=== PATIENT | female | born 1965 | race Caucasian/White ===

== ENCOUNTER 2016-04-27 15:23 | Inpatient (IN) | payer MEDICAID ==
[2016-04-24 21:00] VITALS: BP 87/50
[~2016-04-27] VITALS: Ht 170.2 cm; Wt 62.9 kg
[2016-04-27 16:09] LABS: BASOPHILS 0.2 % (0.0-2.0); EOSINOPHILS 1.8 % (0-7); HEMATOCRIT 35.3 % (36.0-48.0); HEMOGLOBIN 12.2 g/dL (12-16); IMMATURE GRANULOCYTES 0.4 % (0-5); LYMPHOCYTES 19.5 % (15-50); MCH 30.4 pg (26.0-34.0); MCHC 34.6 g/dL (31.0-37.0); MEAN PLATELET VOLUME 9.8 fL (7.4-10.4); NEUTROPHILS 68.1 % (40-80); PLATELET COUNT 276 10x3/uL (130-400); RBC 4.01 10x6/uL (4.00-5.40); RDW 13.6 % (11.5-14.5)
[2016-04-27 16:39] LABS: ALBUMIN 3.2 g/dL (3.4-5.0); ANION GAP 16.8 mmol/L (8-16); BILIRUBIN - TOTAL 0.66 mg/dL (0.2-1.3); CALCIUM 11.1 mg/dL (8.5-10.1); CARBON DIOXIDE 21.4 mmol/L (21.0-32.0); CREATININE - SERUM 1.4 mg/dL (0.6-1.3); POTASSIUM - SERUM 4.2 mmol/L (3.5-5.1); PROTEIN - SERUM 7.4 g/dL (6.4-8.2)
[2016-04-27 18:43] LABS: APPEARANCE HAZY (CLEAR); BILIRUBIN NEGATIVE (NEGATIVE); COLOR YELLOW (YELLOW); GLUCOSE NEGATIVE (NEGATIVE); KETONE MODERATE mg/dL (NEGATIVE); LEUKOCYTE ESTERASE TRACE (NEGATIVE); NITRITE POSITIVE (NEGATIVE); PROTEIN NEGATIVE (NEGATIVE); UROBILINOGEN NORMAL (NORMAL)
[2016-04-27 18:50] LABS: BACTERIA MODERATE /hpf (NONE SEEN); EPITHELIAL CELLS 0-5 /hpf (0-5); GRANULAR CAST OCC /lpf (NONE SEEN); RED CELLS - URINE 0-5 /hpf (0-5)
[2016-04-27 19:11] LABS: UDS - AMPHET NEGATIVE QUAL (NEGATIVE); UDS - BARB NEGATIVE QUAL (NEGATIVE); UDS - BENZO NEGATIVE QUAL (NEGATIVE); UDS - COCAINE NEGATIVE QUAL (NEGATIVE); UDS - METH NEGATIVE QUAL (NEGATIVE); UDS - OPIATE NEGATIVE QUAL (NEGATIVE); UDS - PCP NEGATIVE QUAL (NEGATIVE); UDS - THC NEGATIVE QUAL (NEGATIVE)
--- NOTE | 2016-04-27 20:55 | NUR ---
PT ARRIVED VIA STRETCHER, HOOKED TO MONITORS, PT ALERT AND ORIENTED, ON RA WITH 96% O2 SAT. CLEAR IN ALL LOBES, S1S2, CM-NSR, PATENT RIGHT A/C PIV WITH NS INFUSING VIA PUMP, ABODMEN IS SOFT AND FLAT WITH ACTIVE BS, NO EDEMA NOTED, ALL PPP, CALL LIGHT IN REACH, WILL CON'T TO MONITOR
[2016-04-27 21:05] VITALS: BP 87/50; BMI 21.7
[2016-04-27 22:00] VITALS: BP 82/56
[2016-04-27 23:00] VITALS: BP 79/45
[2016-04-28] VITALS (26 sets, daily range): BP systolic 76–113; BP diastolic 45–69; Ht 170.2 cm; Wt 62.9 kg
--- NOTE | 2016-04-28 | NUR ---
REASSESSMENT COMPLETE, NO CHANGES NOTED, PT RESTING COMFORTABLY AT THIS TIME, DENIES ANY NEEDS, VSS, CALL LIGHT IN REACH
--- NOTE | 2016-04-28 03:25 | NUR ---
REASSESSMENT COMPLETE, NO CHANGES NOTED, PT RESTING AT THIS TIME, DENIES ANY NEEDS, WILL CON'T TO MONITOR
[2016-04-28 04:15] LABS: BASOPHILS 0.1 % (0.0-2.0); EOSINOPHILS 3.4 % (0-7); IMMATURE GRANULOCYTES 0.3 % (0-5); LYMPHOCYTES 16.6 % (15-50); MCH 29.6 pg (26.0-34.0); MCHC 33.3 g/dL (31.0-37.0); MCV 88.7 fL (80.0-100.0); MONOCYTES 8.2 % (2-11); NEUTROPHILS 71.4 % (40-80); PLATELET COUNT 259 10x3/uL (130-400); RDW 13.7 % (11.5-14.5)
[2016-04-28 04:18] LABS: HEMATOCRIT 28.2 % (36.0-48.0); HEMOGLOBIN 9.4 g/dL (12-16); RBC 3.18 10x6/uL (4.00-5.40); WBC 9.7 10x3/uL (4.8-10.8)
[2016-04-28 04:28] LABS: INR 1.41 (0.85-1.17); PROTIME 17.2 SECONDS (11.6-15.0)
[2016-04-28 04:29] LABS: APTT 65.7 SECONDS (22.8-39.4)
[2016-04-28 04:56] LABS: ALBUMIN 2.5 g/dL (3.4-5.0); ALKALINE PHOSPHATASE 138 U/L (46-116); AMYLASE - SERUM 15 U/L (25-115); BILIRUBIN - TOTAL 0.46 mg/dL (0.2-1.3); CALC OSMOLALITY 263 mosm/kg (275-300); CALCIUM 9.7 mg/dL (8.5-10.1); CARBON DIOXIDE 19.4 mmol/L (21.0-32.0); CHLORIDE - SERUM 98 mmol/L (98-107); CKMB 0.8 U/L (0.0-3.6); CREATININE - SERUM 1.1 mg/dL (0.6-1.3); GLUCOSE 74 mg/dL (74-106); LIPASE 122 U/L (73-393); POTASSIUM - SERUM 4.3 mmol/L (3.5-5.1); SODIUM 130 mmol/L (136-145); THYROID STIMULATING HORMONE 2.41 uIU/mL (0.36-3.74); UREA NITROGEN 23 mg/dL (7-18); eGFR NON AFRICAN AMERICAN 56 mL/min (90-120)
[2016-04-28 05:03] LABS: ALT (SGPT) 13 U/L (10-68); TROPONIN-I < 0.017 ng/mL (0.000-0.060)
--- NOTE | 2016-04-28 09:54 | NUR ---
Is the patient Alert and Oriented? Yes 0 * How many steps to enter\exit or inside your home? 3 0 * PCP DR. CURRAN 0 * Pharmacy [facility] [address] [facility] 0 * Preadmission Environment Home with Family 0 * ADLs Independent 0 * Equipment None 0 * List name and contact numbers for known caregivers / representatives who currently or will assist patient after discharge: SISTER: KAYLYN WALTON [phone] * Community resources currently utilized None 0 * Additional services required to return to the preadmission environment? No 0 * Can the patient safely return to the preadmission environment? Yes 0 * Has this patient been hospitalized within the prior 30 days at any hospital? No PATIENT STATES SHE WAS LIVING AT HOME WITH A FRIEND. SHE STATES SHE WILL BE MOVING IN WITH HER SISTER, KAYLYN WALTON. SHE STATES HER SISTER WILL BE AVAILABLE TO DRIVE HER HOME AT DISCHARGE. HER PCP IS DR. CURRAN. SHE GET HER MEDS AT [facility]. SHE HAS NEVER HAD HOME HEALTH. SHE DENIES USE OF ANY EQUIPMENT. THERE ARE 3 STEPS TO ENTER HER HOME. NO DISCHARGE NEEDS IDENTIFIED AT THIS TIME.
[2016-04-28 15:44] LABS: APPEARANCE HAZY (CLEAR); BILIRUBIN NEGATIVE (NEGATIVE); COLOR YELLOW (YELLOW); GLUCOSE NEGATIVE (NEGATIVE); KETONE NEGATIVE (NEGATIVE); LEUKOCYTE ESTERASE 1+ (NEGATIVE); NITRITE NEGATIVE (NEGATIVE); PROTEIN NEGATIVE (NEGATIVE); UROBILINOGEN NORMAL (NORMAL)
[2016-04-28 15:45] LABS: BACTERIA MANY /hpf (NONE SEEN); EPITHELIAL CELLS 0-5 /hpf (0-5); RED CELLS - URINE 0-5 /hpf (0-5); WHITE CELLS - URINE >50 /hpf (0-5)
--- NOTE | 2016-04-28 19:30 | NUR ---
REPORT RECIEVED, SHIFT ASSESSMENT COMPLETE, PT IS ALERT AND ORIENTED, ON RA WITH 98% O2 SAT. LUNGS CLEAR IN ALL LOBES, S1S2, CM-NSR, PATENT RIGHT FA PIV WITH NS INFUSING VIA PUMP, ABDOMEN IS SOFT AND FLAT WITH ACTIVE BS, BP AT BEDSIDE, COMPLETE BATH AND LINEN CHANGE, NO EDEMA NOTED, ALL PPP, VSS, CALL LIGHT IN REACH
--- NOTE | 2016-04-28 21:12 | NUR ---
PT RESTING AT THIS TIME, NO NEEDS NOTED, WILL CON'T TO MONITOR
--- NOTE | 2016-04-28 23:16 | NUR ---
REASSESSMENT COMPLETE, NO CHANGES NOTED, PT RESTING AT THIS TIME, DENIES ANY WANTS OR NEEDS, WILL CON'T TO MONITOR
[2016-04-29] VITALS (20 sets, daily range): BP systolic 89–114; BP diastolic 34–78
--- NOTE | 2016-04-29 01:30 | NUR ---
PT RESTING AT THIS TIME, NO NEEDS NOTED, WILL CON'T TO MONITOR
--- NOTE | 2016-04-29 03:30 | NUR ---
REASSESSMENT COMPLETE, NO CHANGES NOTED, PT RESTING AT THIS TIME, NO NEEDS NOTED, WILL CON'T TO MONITOR
[2016-04-29 04:36] LABS: BASOPHILS 0.4 % (0.0-2.0); EOSINOPHILS 5.6 % (0-7); HEMATOCRIT 26.5 % (36.0-48.0); HEMOGLOBIN 8.7 g/dL (12-16); IMMATURE GRANULOCYTES 1.2 % (0-5); LYMPHOCYTES 23.8 % (15-50); MCH 28.9 pg (26.0-34.0); MCHC 32.8 g/dL (31.0-37.0); MEAN PLATELET VOLUME 9.6 fL (7.4-10.4); MONOCYTES 8.3 % (2-11); NEUTROPHILS 60.7 % (40-80); PLATELET COUNT 238 10x3/uL (130-400); RBC 3.01 10x6/uL (4.00-5.40); RDW 13.5 % (11.5-14.5)
[2016-04-29 04:37] LABS: WBC 5.7 10x3/uL (4.8-10.8)
[2016-04-29 04:42] LABS: MONO NEGATIVE (NEGATIVE)
--- NOTE | 2016-04-29 04:55 | NUR ---
PT UPTO BSC AT THIS TIME, 100CC OF YELLOW UOP
[2016-04-29 04:58] LABS: % SATURATION 18 % (15-55); IRON 30 ug/dl (35-150); TOTAL IRON BIND CAPACITY 166 ug/dl (260-445); UNSAT IRON BIND CAPACITY 136 ug/dl (150-375)
[2016-04-29 05:16] LABS: ALBUMIN 2.3 g/dL (3.4-5.0); ALKALINE PHOSPHATASE 164 U/L (46-116); ALT (SGPT) 13 U/L (10-68); CALCIUM 8.7 mg/dL (8.5-10.1); CARBON DIOXIDE 22.8 mmol/L (21.0-32.0); CHLORIDE - SERUM 99 mmol/L (98-107); FERRITIN 261 ng/mL (3-244); GLUCOSE 102 mg/dL (74-106); MAGNESIUM - SERUM 1.1 mg/dL (1.8-2.4); PHOSPHOROUS 2.6 mg/dL (2.5-4.9); PROTEIN - SERUM 5.7 g/dL (6.4-8.2); SODIUM 131 mmol/L (136-145); TROPONIN-I < 0.017 ng/mL (0.000-0.060)
[2016-04-29 05:18] LABS: CALC OSMOLALITY 261 mosm/kg (275-300); CREATININE - SERUM 0.8 mg/dL (0.6-1.3); POTASSIUM - SERUM 3.4 mmol/L (3.5-5.1); UREA NITROGEN 11 mg/dL (7-18); eGFR NON AFRICAN AMERICAN 80 mL/min (90-120)
[2016-04-29 11:15] LABS: HEPATITIS C ANTIBODY <0.1 (0.0-0.9)
--- NOTE | 2016-04-29 19:30 | NUR ---
REPORT RECIEVED, SHIFT ASSESSMENT COMPLETE, PT IS ALERT AND ORIENTED, ON RA WITH 97% O2 SAT. LUNGS CLEAR IN ALL LOBES, S1S2, CM-NSR, PATENT RIGHT A/C PIV S/L, ABDOMEN IS SOFT AND ROUND WITH ACTIVE BS, BSC AT BEDSIDE, NO EDEMA NOTED, ALL PPP, VSS, CALL LIGHT IN REACH
--- NOTE | 2016-04-29 21:20 | NUR ---
PT UPTO BSC, 200CC OF UOP, NO OTHER NEEDS NOTED, WILL CON'T TO MONITOR
--- NOTE | 2016-04-29 23:13 | NUR ---
REASSESSMENT COMPLETE, NO CHANGES NOTED, PT RESTING AT THIS TIME, NO NEEDS NOTED, VSS, CALL LIGHT IN REACH
--- NOTE | 2016-04-30 01:15 | NUR ---
PT RESTING AT THIS TIME, NO NEEDS NOTED, WILL CON'T TO MONITOR
[2016-04-30 03:00] VITALS: BP 91/60
--- NOTE | 2016-04-30 03:15 | NUR ---
UPTO BSC AT THIS TIME, 300CC UOP AT THIS TIME,
[2016-04-30] MEDS ORDERED: ZESTORETIC 10/11 TAB PO (04:54)
[2016-04-30] MEDS ORDERED: KLOR-CON 1010 MEQ PO (04:55)
[2016-04-30] MEDS ORDERED: PAXIL20 MG PO (04:58)
[2016-04-30] MEDS ORDERED: HYDROCHLOROTHIA25 MG PO (04:58)
[2016-04-30] MEDS ORDERED: PREVACID30 MG PO (04:59)
[2016-04-30 05:24] LABS: BASOPHILS 0.5 % (0.0-2.0); EOSINOPHILS 3.9 % (0-7); HEMATOCRIT 28.6 % (36.0-48.0); HEMOGLOBIN 9.5 g/dL (12-16); IMMATURE GRANULOCYTES 1.1 % (0-5); MCH 29.3 pg (26.0-34.0); MCHC 33.2 g/dL (31.0-37.0); MCV 88.3 fL (80.0-100.0); MEAN PLATELET VOLUME 9.9 fL (7.4-10.4); MONOCYTES 10.7 % (2-11); NEUTROPHILS 51.8 % (40-80); PLATELET COUNT 282 10x3/uL (130-400); RBC 3.24 10x6/uL (4.00-5.40); RDW 13.6 % (11.5-14.5); WBC 5.6 10x3/uL (4.8-10.8)
--- NOTE | 2016-04-30 05:30 | NUR ---
PT AWAKE AT THIS TIME, NO NEEDS NOTED, WILL CON'T TO MONITOR
[2016-04-30 05:49] LABS: CALC OSMOLALITY 264 mosm/kg (275-300); CALCIUM 9.3 mg/dL (8.5-10.1); CARBON DIOXIDE 25.1 mmol/L (21.0-32.0); CHLORIDE - SERUM 101 mmol/L (98-107); CREATININE - SERUM 0.8 mg/dL (0.6-1.3); GLUCOSE 94 mg/dL (74-106); POTASSIUM - SERUM 3.4 mmol/L (3.5-5.1); SODIUM 134 mmol/L (136-145); eGFR NON AFRICAN AMERICAN 80 mL/min (90-120)
[2016-04-30 06:02] LABS: MAGNESIUM - SERUM 1.5 mg/dL (1.8-2.4); PHOSPHOROUS 3.3 mg/dL (2.5-4.9); UREA NITROGEN 5 mg/dL (7-18)
[2016-04-30 06:13] LABS: RAPID PLASMA REAGIN Non Reactive (Non Reactive)
[2016-04-30 08:00] VITALS: BP 90/60
--- NOTE | 2016-04-30 08:33 | NUR ---
PT RESTING QUIETLY, VSS, AFEBRILE.
--- NOTE | 2016-04-30 09:32 | NUR ---
NUTRITION MONITORING & EVAL CHART REVIEWED. NURSING REPORTS PT WITH GOOD INTAKE REG DIET. RD FOLLOWING
[2016-04-30 11:00] VITALS: BP 95/59
[2016-04-30 13:17] LABS: CYTOMEGALOVIRUS AB IGG >10.00 U/mL (0.00-0.59)
[2016-04-30 14:20] LABS: EBV - EARLY ANTIGEN AB IGG <9.0 U/mL (0.0-8.9); EBV - NUCLEAR ANTIGEN AB IGG >600.0 U/mL (0.0-17.9); EBV VIRAL CAPSID AB IGM <36.0 U/mL (0.0-35.9)
[2016-04-30 16:00] VITALS: BP 117/67
--- NOTE | 2016-04-30 19:00 | NUR ---
REPORT REC'D, PATINET'S CARE ASSUMED. ASSESSMENT COMPLETED. SEE FLOW SHEETS FOR ALL FINDINGS. PT LAYING IN BED WITH HOB UP, DENIES SOB OR ANY DISCOMFORT AT THIS TIME. SR ON CM. LUNG SOUNDS CLEAR, DIMINSHED TO LLB, UNLABORED ON RA. RT AC PIV INTACT, NO REDNESS OR IRRITATION, SALINE LOCKED. FLUSHED PER PROTOCOL WITHOUT DIFFIC. PPP. CALL LIGHT IN REACH. BST IN REACH. WILL CONT TO MONITOR.
[2016-04-30 20:00] VITALS: BP 90/54
--- NOTE | 2016-04-30 21:40 | NUR ---
TRANSFERED PATIENT TO FLOOR ROOM 2206, VIA WHEELCHAIR. PT TOL. DUMONT.
--- NOTE | 2016-04-30 22:30 | NUR ---
PATIENT RECEIVED TO ROOM FROM ICU VIA STRETCHER WITH HOSPITAL STAFF. AAOX4. RR EVEN AND UNLABORED. 0 S/S OF DISTRESS. DENIES PAIN AT THIS TIME. IV TO RIGHT AC PATENT WITH SOME REDNESS WHICH APPEARS TO BE IRRITATION FROM TAPE. CANNOT PUT TELEMETRY ON PATIENT BECAUSE THERE ARE NO BOXES AT THIS TIME. ORIENTED PATIENT TO ROOM. NO OTHER NEEDS AT THIS TIME.
[2016-05-01] VITALS: BP 98/58
[2016-05-01 04:00] VITALS: BP 89/49
--- NOTE | 2016-05-01 05:25 | NUR ---
PATIENT TOOK SHOWER AND NOW BACK IN BED. INITIATED ANTIBIOTICS PER ORDER. DENIES NEEDS AT THIS TIME.
--- NOTE | 2016-05-01 07:20 | NUR ---
PATIENT RECEIVED ALERT IN RIGHT LATERAL POSITION. NO SIGNS OF DISTRESS NOTED. SIDE RAILS UP X2. BED IN LOW POSITION. CALL LIGHT IN REACH.
--- NOTE | 2016-05-01 07:45 | NUR ---
22 GAUGE IV SITED TO LEFT HAND X1 ATTEMPT BY BOB FREDERICK
[2016-05-01 08:09] VITALS: BP 88/56
[2016-05-01 08:14] LABS: CALC OSMOLALITY 264 mosm/kg (275-300); CALCIUM 9.3 mg/dL (8.5-10.1); CARBON DIOXIDE 24.2 mmol/L (21.0-32.0); CHLORIDE - SERUM 100 mmol/L (98-107); CREATININE - SERUM 0.6 mg/dL (0.6-1.3); GLUCOSE 88 mg/dL (74-106); POTASSIUM - SERUM 3.9 mmol/L (3.5-5.1); SODIUM 134 mmol/L (136-145); UREA NITROGEN 6 mg/dL (7-18); eGFR NON AFRICAN AMERICAN > 90 mL/min (90-120)
[2016-05-01 08:19] LABS: BASOPHILS 0.5 % (0.0-2.0); EOSINOPHILS 3.8 % (0-7); HEMATOCRIT 29.3 % (36.0-48.0); HEMOGLOBIN 9.7 g/dL (12-16); IMMATURE GRANULOCYTES 0.5 % (0-5); LYMPHOCYTES 38.6 % (15-50); MCH 29.8 pg (26.0-34.0); MCHC 33.1 g/dL (31.0-37.0); MCV 90.2 fL (80.0-100.0); MONOCYTES 6.7 % (2-11); NEUTROPHILS 49.9 % (40-80); PLATELET COUNT 327 10x3/uL (130-400); RBC 3.25 10x6/uL (4.00-5.40); RDW 14.2 % (11.5-14.5); WBC 6.6 10x3/uL (4.8-10.8)
--- NOTE | 2016-05-01 08:45 | NUR ---
PATIENT ALERT IN BED. NO SIGNS OF DISTRESS NOTED. SCHEDULED MEDICATION ADMINISTERED WELL PRN NORCO FOR C/O PAIN 09/02. NO FURTHER NEEDS VOICED. SIDE RAILS UP X2. BED IN LOW POSITION. CALL LIGHT IN REACH.
[2016-05-01] MEDS ORDERED: ALLEGRA-D1 TAB.SR . PO (09:41)
[2016-05-01] MEDS ORDERED: ALLEGRA-D1 TAB.SR1 PO (09:41)
[2016-05-01] MEDS ORDERED: CYCLOBENZAPRINE10 MG PO (09:41)
[2016-05-01] MEDS ORDERED: VALIUM5 MG PO (09:42)
[2016-05-01] MEDS ORDERED: HYDROCODONE-APA1 TAB PO (09:42)
[2016-05-01] MEDS ORDERED: PAXIL40 MG PO (09:43)
[2016-05-01] MEDS ORDERED: KLOR-CON M2020 MEQ PO (09:44)
[2016-05-01 12:12] VITALS: BP 97/68
--- NOTE | 2016-05-01 12:13 | NUR ---
ALERT IN BED. IV ABX INITIATED PER ORDER. IV TO LEFT HAND FLUSHES EASY. NO REDNESS OR INFLAMMATION NOTED TO SITE. BED IN LOW POSITION. CALL LIGHT IN REACH.
[2016-05-01 12:15] LABS: BARTONELLA - HENSELAE IGG Negative titer (Neg:<1:320); BARTONELLA - HENSELAE IGM Negative titer (Neg:<1:100); BARTONELLA - QUINTANA IGG Negative titer (Neg:<1:320); BARTONELLA - QUINTANA IGM Negative titer (Neg:<1:100)
[2016-05-01] MEDS ORDERED: FLAGYL500 MG PO (13:49)
[2016-05-01] MEDS ORDERED: KEFLEX500 MG PO (13:50)
--- NOTE | 2016-05-01 13:50 | NUR ---
IV TO LEFT HAND D/C WITH CATH TIP INTACT. SITE COVERED WITH GAUZE AND BANDAID. ANTICIPATING D/C HOME.
--- NOTE | 2016-05-01 14:45 | NUR ---
D/C TEACHING AND WRITTEN PRESCRIPTIONS PROVIDED. PATIENT STATES UNDERSTANDING.
--- NOTE | 2016-05-01 14:51 | NUR ---
PATIENT D/C HOME. TRANSFERRED DOWNSTAIRS VIA WHEELCHAIR WITH STAFF.
--- NOTE | 2016-05-01 14:56 | NUR ---
LATE ENTRY- PATIENT DISCHARGED HOME TODAY WITH NO NEEDS.
[2016-05-01 18:08] LABS: CHLAMYDIA TRACHOMATIS, NAA Negative (Negative)
[2016-05-03 15:08] LABS: AEROBE ID Final report (())
[2016-05-05 16:12] LABS: F. TULARENSIS - IGG Negative (()); F. TULARENSIS - IGM Negative (())
--- NOTE | 2016-05-18 15:45 | EC ---
PATIENT:MIRZA TABARES DATE OF SERVICE: 04/27/16 SEX: F MEDICAL RECORD: [id number] DATE OF : 65 LOCATION:D.MS Kevin220 AGE OF PATIENT: 50 ADMISSION DATE: 04/27/16 REFERRING PHYSICIAN: INTERPRETING PHYSICIAN: ANUJA MACIAS M.D. ECHOCARDIOGRAM REPORT ECHO CHARGES 4 ECHO COMPLETE CLINICAL DIAGNOSIS: HYPOTENSION ECHOCARDIOGRAPHIC MEASUREMENTS (adult normal given) AC root (d.<3.7cm) 3.3 LV Septum d (<1.2 cm> 1.2 Valve Excursion 1.3 LV Septum (systole) 1.4 Left Atria (s.<4.0cm> 3.1 LVPW d(<1.2cm) 1.2 RV (d.<2.3cm) 3.0 LVPW (sytole) 1.5 LV diastole(<5.6CM) 4.3 MV E-F(>70mm/sec) LV systole 2.7 LVOT Diameter 1.9 MV exc.(>10mm) 1.1 Est.ejection fraction (50-75%) Pericardial Effusion N DOPPLER: LVIT A 76.0 E 104 LA RVSP 34 LVOT 130 AOP1/2T Asc. Ao 160 RVOT RA PA AV Gradient Peak 10.50 AV Mean 5.56 AV Area 1.8 MV Gradient Peak 4.09 MV Mean 1.77 MV Area COMMENTS: Applied Exercise Physiologist: Jad XAVIER Obstetrics Nurse:Jad Macias TAPE# PACS DATE OF SERVICE: 04/28/2016 REFERRING PHYSICIAN: Jeremiah Diaz MD INDICATION: Hypotension. DESCRIPTION: Left ventricle appears normal in size and function. No wall motion abnormalities are seen. Estimated ejection fraction is 60%. Mitral valve is structurally normal. There is trivial regurgitation seen. Left atrium is normal in size. The aortic valve is trileaflet. There is no stenosis or ECHOCARDIOGRAM REPORT [id number] MIRZA TABARES regurgitation seen. Right ventricle is mildly dilated. Tricuspid valve is structurally normal. There is mild regurgitation seen. Right atrium is normal size. There is no pericardial effusion noted. IMPRESSION: 1. Normal left ventricular size and function, ejection fraction of 60%. 2. Trivial mitral regurgitation. 3. Mild tricuspid regurgitation. TRANSINT:[id number] Voice Confirmation ID: [id number] DOCUMENT ID: [id number] ANUJA MACIAS M.D. at 1545 CC: [id number] DICTATION DATE: 04/28/16 161 TOWER DIRECTOR: 04/29/16 0043 DIS IN 05/01/16 [place] [id number] [place] [id number]
--- NOTE | 2016-05-26 10:28 | DS ---
PATIENT:MIRZA TABARES :65 MEDICAL RECORD: [id number] DISCHARGE SUMMARY ADMISSION DATE: 04/27/16 DISCHARGE DATE: 05/01/16 DATE OF ADMISSION: 04/27/2016. DATE OF DISCHARGE: 05/01/2016. DISCHARGE DIAGNOSES: 1. Hypotension. 2. Trichomonas vaginitis. 3. Urinary tract infection. 4. Neutrophilic leukocytosis. 5. Dehydration. 6. Prerenal azotemia. 7. Iron deficiency anemia. 8. Acute pharyngitis. 9. Tobacco dependency. 10. Altered mental status, resolved. 11. Metabolic encephalopathy. 12. Hypokalemia. 13. Hypomagnesemia. CONSULTS: 1. Dr. Mcintosh. 2. Dr. De La Rosa. IMAGIN. Chest x-ray, which shows no acute cardiopulmonary processes. 2. Ultrasound of the soft tissue of the head and neck, it shows enlarged lymph nodes in the anterior soft tissue of the neck. 3. A 2D echocardiogram, which shows an EF of 60% with normal mitral valve structure and there was trivial regurgitation on the mitral valve and mild tricuspid regurgitation. HOSPITAL COURSE: The full H&P is listed elsewhere on the chart for this 50-year-old patient who has admitted hypotensive and leukocytotic with the white count of 18,000. The patient has a sore throat for approximately a week. She also had some dysuria and altered mental status. The patient was noted to have a UTI and was placed in the ICU on aggressive IV hydration. She did require some correction of her electrolytes during her hospitalization. Antibiotic coverage included Zosyn and Rocephin. The patient required correction of electrolytes including potassium and magnesium. She was noted to be iron deficient. The patient's HIV and hepatitis screenings were negative. Her mono spot was negative. Her EBV and CMV were pending. The patient would need to 7 days with the Flagyl for her Trichomonas. Secondary urine cultures were negative. She improved and was thought to be stable to transfer to the floor. She continued to improve and was discharged home to follow up in the outpatient setting. See med rec. TRANSINT:[id number] Voice Confirmation ID: [id number] DOCUMENT ID: [id number] Dictated By: CHANDU PLASCENCIA I have interviewed/examined the above patient and agree with these documented DISCHARGE SUMMARY REPORT [id number] MIRZA TABARES findings. TRACY ZHONG MD at 1028 at 0948 CC: [id number] DICTATION DATE: 05/21/16828 MANAGER SERVICE DESK: 05/21/16 09 DIS IN 05/01/16 [address] [place] [id number]
== END 2016-05-01 14:51 | disposition home or self-care (01) | DRG 689 ==
LOC: D.ER 15:23 → D.ICU 19:22 → D.MS 04-30 22:18
PROVIDERS: Emergency Medicine; Internal Medicine Pulmonary Disease; Physician Assistant Medical; Student in an Organized Health Care Education/Training Program; ADMIT Family Medicine Adult Medicine
DX: N39.0 Urinary tract infection, site not specified (principal); G93.41 Metabolic encephalopathy; E87.1 Hypo-osmolality and hyponatremia; J02.9 Acute pharyngitis, unspecified; I95.9 Hypotension, unspecified; A59.01 Trichomonal vulvovaginitis; I10 Essential (primary) hypertension; E86.0 Dehydration; J32.9 Chronic sinusitis, unspecified; D64.9 Anemia, unspecified; R59.1 Generalized enlarged lymph nodes; R30.0 Dysuria; D72.9 Disorder of white blood cells, unspecified; E87.6 Hypokalemia; E83.42 Hypomagnesemia; R53.81 Other malaise; I08.1 Rheumatic disorders of both mitral and tricuspid valves; F17.200 Nicotine dependence, unspecified, uncomplicated

== ENCOUNTER → 2017-11-29 11:42 | Outpatient (CLI) | payer OTHER ==
[2016-04-28 09:34] VITALS: BMI 22.2
[~2017-11-29 11:42] MED LIST: ALLEGRA-D1 TAB.SR . PO; ALLEGRA-D1 TAB.SR1 PO; CYCLOBENZAPRINE10 MG PO; FLAGYL500 MG PO; HYDROCHLOROTHIA25 MG PO; HYDROCODONE-APA1 TAB PO; KEFLEX500 MG PO; KLOR-CON 1010 MEQ PO; KLOR-CON M2020 MEQ PO; PAXIL20 MG PO; PAXIL40 MG PO; PREVACID30 MG PO; VALIUM5 MG PO; ZESTORETIC 10/11 TAB PO
== END | disposition home or self-care (01) ==
LOC: D.RAD 11:42
DX: Z02.71 Encounter for disability determination (principal)

== ENCOUNTER 2018-06-10 03:42 | Observation (INO) | payer MEDICAID ==
[2018-06-10] VITALS (9 sets, daily range): BP systolic 76–98; BP diastolic 43–61; BMI 20.4
[~2018-06-10] VITALS: Ht 170.2 cm; Wt 59.0 kg
[2018-06-10] MEDS ORDERED: ULTRAM50 MG (03:51)
[2018-06-10] MEDS ORDERED: HYDROCODON-ACE1 EA10 (03:51)
[2018-06-10] MEDS ORDERED: OMEPRAZOLE20 M1 (03:51)
[2018-06-10 04:10] LABS: BASOPHILS 0.3 % (0-2); EOSINOPHILS 1.3 % (0-7); HEMATOCRIT 37.5 % (36.0-48.0); HEMOGLOBIN 12.8 g/dL (12-16); IMMATURE GRANULOCYTES 0.2 % (0-5); LYMPHOCYTES 26.6 % (15-50); MCH 30.4 pg (26.0-34.0); MCHC 34.1 g/dL (31.0-37.0); MCV 89.1 fL (80.0-100.0); MEAN PLATELET VOLUME 9.5 fL (7.4-10.4); MONOCYTES 9.3 % (2-11); NEUTROPHILS 62.3 % (40-80); PLATELET COUNT 348 10x3/uL (130-400); RBC 4.21 10x6/uL (4.00-5.40); RDW 13.4 % (11.5-14.5); WBC 14.3 10x3/uL (4.8-10.8)
[2018-06-10 04:23] LABS: APTT 30.6 SECONDS (22.8-39.4); INR 0.99 (0.85-1.17); PROTIME 12.6 SECONDS (11.6-15.0)
[2018-06-10 04:28] LABS: ALBUMIN 3.8 g/dL (3.4-5.0); ALKALINE PHOSPHATASE 112 U/L (46-116); ALT (SGPT) 20 U/L (10-68); BILIRUBIN - TOTAL 0.48 mg/dL (0.2-1.3); CALC OSMOLALITY 271 mosm/kg (275-300); CALCIUM 8.8 mg/dL (8.5-10.1); CARBON DIOXIDE 25.3 mmol/L (21.0-32.0); CHLORIDE - SERUM 97 mmol/L (98-107); GLUCOSE 97 mg/dL (74-106); POTASSIUM - SERUM 4.1 mmol/L (3.5-5.1); PROTEIN - SERUM 7.7 g/dL (6.4-8.2); SODIUM 133 mmol/L (136-145); UREA NITROGEN 30 mg/dL (7-18); eGFR NON AFRICAN AMERICAN 62 mL/min (90-120)
[2018-06-10 04:50] LABS: CKMB 0.4 U/L (0.0-3.6); CREATINE KINASE 44 UL (21-215)
[2018-06-10 04:54] LABS: TROPONIN-I < 0.017 ng/mL (0.000-0.060)
--- NOTE | 2018-06-10 07:08 | NUR ---
HAND-OFF REPORT RECEIVED FROM OFF GOING RN KALYAN Delgado. PT OBSERVED SITTING IN HIGH FOWLERS. RESPIRATIONS EVEN AND UNLABORED. BREAKFAST TRAY PROVIDED PER DIETARY ORDERS. PT DENIES ANY NEEDS AT THIS TIME. ORDERED IV FLUIDS INFUSING WITH NO SIGNS OF INFILTRATION. CALL LIGHT IN REACH. ED MANAGER WOUND ASKED TO NOTIFY DR. HILL OF ORDERED CONSULT. WILL CONTINUE TO MONITOR PT.
--- NOTE | 2018-06-10 08:09 | NUR ---
NS BOLUS INITIATED AT 0655 NOW COMPLETE AT 0809.
--- NOTE | 2018-06-10 08:12 | NUR ---
PT'S CURRENT BP 78/46. SPOKE WITH ADMITTING PHYSICIAN DR. WEIR AND NURSE RECEIVED TELEPHONE ORDER FOR STAT ECHO, NS BOLUS 1 LITER, AND SERIAL CARDIAC ENZYMES.
--- NOTE | 2018-06-10 08:15 | NUR ---
NOTIFIED DEPT THAT ORDERED ECHO WAS REQUESTED TO BE STAT BY DR. WEIR.
--- NOTE | 2018-06-10 09:03 | NUR ---
PT REQUESTED PAIN MEDICATION. NURSE EXPLAINED THAT ORDERED ULTRAM WAS CURRENTLY BEING WITHELD D/T PT'S CURRENT HYPOTENSION. PT EDUCATED THAT ORDERED MEDICATION COULD POTENTIALLY CAUSE A FURTHER DECREASE IN BP.
[2018-06-10 09:10] LABS: CKMB 0.3 U/L (0.0-3.6); CREATINE KINASE 35 UL (21-215); TROPONIN-I < 0.017 ng/mL (0.000-0.060)
--- NOTE | 2018-06-10 09:28 | NUR ---
ORDERED ECHO BEING PERFORMED AT THE BEDSIDE AT THIS TIME. NURSE NOTIFIED THAT PT IS TO BE NPO FOR THE NEXT 8 HOURS PER TROUBLE LOCATOR TEST DESK FOR ORDERED TEST. PT VOICES UNDERSTANDING OF NPO ORDERS. START TIME FOR NPO STATUS IS 929, JOHN IN ULTRASOUND NOTIFIED.
--- NOTE | 2018-06-10 09:48 | NUR ---
ORDERED NS BOLUS INITIATED AT 0821 COMPLETE AT 0947.
--- NOTE | 2018-06-10 09:49 | NUR ---
SPOKE WITH ADMITTING PROVIDER REGARDING THE PATIENTS BLOOD PRESSURE, HE STATES HE IS NOT CONCERNED THE PATIENT HAS A HISTORY OF HYPOTENSION AND IS NOT SYMPTOMATIC AT THIS TIME. HE DID REQUEST MANUAL BP IN BOTH ARMS AND TO BE NOTIFIED IF THE PATIENT BECOMES SYMPTOMATIC.
--- NOTE | 2018-06-10 09:59 | NUR ---
MANUAL BP IN LUE 92/76, MANUAL BP IN RUE 96/74.
--- NOTE | 2018-06-10 11:52 | NUR ---
PT OBSERVED LYING IN BED, RESPIRATIONS EVEN AND UNLABORED. PT REMAINS NPO AT THIS TIME. MANUAL BP RECHECKED AT 1127, 76/49. CALL LIGHT IN REACH, WILL CONTINUE TO MONITOR.
--- NOTE | 2018-06-10 12:56 | NUR ---
PT'S TEMP 100.7. DR. WEIR NOTIFIED, WILL ADMINISTER PRN TYLENOL AND NURSE RECEIEVD TELEPHONE ORDER FOR BLOOD CULTURES X2.
[2018-06-10 14:47] LABS: CKMB 0.2 U/L (0.0-3.6); CREATINE KINASE 45 UL (21-215); TROPONIN-I < 0.017 ng/mL (0.000-0.060)
[2018-06-10] MEDS ORDERED: CYCLOBENZAPRINE10 MG PO ×2 (17:06→17:07)
--- NOTE | 2018-06-10 17:07 | NUR ---
1700-RECEIVED TO ROOM VIA WHEELCHAIR TO ROOM ON PORTABLE OXYGEN. GLASSES ON. SALINE LOCK PIV SEEN TO RIGHT AC. WILL ADMIT.
--- NOTE | 2018-06-10 18:00 | NUR ---
The patient is calm and denies any needs at this time.
--- NOTE | 2018-06-10 19:26 | NUR ---
PT IS AAO, VERBALIZED UNDERSTANDING OF NEEDING A URINE SAMPLE. PT DENIES ANY NEEDS AT THIS TIME. NO S/S OF DISTRESS. PT WILL CALL FOR ASSIST WHEN NEEDED.
--- NOTE | 2018-06-10 22:19 | NUR ---
PT HAVING YELLOW EMESIS. ZOFRAN GIVEN
[2018-06-11] VITALS (7 sets, daily range): BP systolic 71–93; BP diastolic 40–54; Ht 170.2 cm; Wt 59.0 kg
--- NOTE | 2018-06-11 02:00 | NUR ---
PT ASLEEP, RESP EVEN AND UNLABORED. 2L O2 NC. PT HAS NO S/S OF DISTRESS. BEDLOW AND CALL LIGHT IN REACH. WILL CPOC
--- NOTE | 2018-06-11 04:50 | NUR ---
PT ASLEEP. RESP EVEN AND UNLABORED. BEDLOW AND CALL LIGHT INREACH. NO S/S OF DISTRESS. 2L O2 NC WILL CPOC
[2018-06-11 07:13] LABS: BASOPHILS 0.3 % (0-2); EOSINOPHILS 0.8 % (0-7); HEMATOCRIT 31.2 % (36.0-48.0); HEMOGLOBIN 10.3 g/dL (12-16); IMMATURE GRANULOCYTES 0.3 % (0-5); LYMPHOCYTES 23.5 % (15-50); MCH 30.4 pg (26.0-34.0); NEUTROPHILS 64.1 % (40-80); RBC 3.39 10x6/uL (4.00-5.40); RDW 13.8 % (11.5-14.5)
[2018-06-11 07:20] LABS: PLATELET COUNT 271 10x3/uL (130-400)
[2018-06-11 07:21] LABS: ANION GAP 19.5 mmol/L (8-16); CALCIUM 8.6 mg/dL (8.5-10.1); POTASSIUM - SERUM 4.1 mmol/L (3.5-5.1)
[2018-06-11 07:26] LABS: CARBON DIOXIDE 18.6 mmol/L (21.0-32.0); CREATININE - SERUM 1.3 mg/dL (0.6-1.3)
--- NOTE | 2018-06-11 08:00 | NUR ---
PT AAOX4 RESP EVEN AND NONLABORED, NO SIGNS OF DISTRESS NOTED, PT HAS TOWEL OVER HEAD, CL IN REACH WILL CONTINUE TO MONITOR
--- NOTE | 2018-06-11 11:23 | NUR ---
STONE CIRCULAR SAWYER SHOWING SR 86 PER TECH.
[2018-06-11 16:36] LABS: APPEARANCE CLEAR (CLEAR); BILIRUBIN NEGATIVE (NEGATIVE); COLOR YELLOW (YELLOW); GLUCOSE NEGATIVE (NEGATIVE); KETONE MODERATE mg/dL (NEGATIVE); NITRITE NEGATIVE (NEGATIVE); PROTEIN TRACE mg/dL (NEGATIVE); UROBILINOGEN NORMAL (NORMAL)
--- NOTE | 2018-06-11 20:35 | NUR ---
PATIENT RESTING IN BED AND DENIES NEEDS AT THIS TIME. BED IN LOWEST POSITION AND CALL LIGHT WITHIN REACH. ENCOURAGED THE PATIENT TO CALL IF SHE HAS NEEDS. WILL CONTINUE TO MONITOR.
[2018-06-12 05:30] VITALS: BP 90/55
[2018-06-12 05:55] LABS: BASOPHILS 0.2 % (0-2); EOSINOPHILS 1.6 % (0-7); HEMATOCRIT 28.4 % (36.0-48.0); HEMOGLOBIN 9.7 g/dL (12-16); IMMATURE GRANULOCYTES 0.2 % (0-5); LYMPHOCYTES 24.8 % (15-50); MCH 30.6 pg (26.0-34.0); MCHC 34.2 g/dL (31.0-37.0); MEAN PLATELET VOLUME 9.5 fL (7.4-10.4); MONOCYTES 9.5 % (2-11); NEUTROPHILS 63.7 % (40-80); PLATELET COUNT 251 10x3/uL (130-400); RBC 3.17 10x6/uL (4.00-5.40); RDW 13.1 % (11.5-14.5)
[2018-06-12 06:00] LABS: MCV 89.6 fL (80.0-100.0); WBC 9.3 10x3/uL (4.8-10.8)
[2018-06-12 06:17] LABS: ANION GAP 20.5 mmol/L (8-16); CALCIUM 9.4 mg/dL (8.5-10.1); CARBON DIOXIDE 17.3 mmol/L (21.0-32.0); CREATININE - SERUM 1.1 mg/dL (0.6-1.3); POTASSIUM - SERUM 3.8 mmol/L (3.5-5.1)
--- NOTE | 2018-06-12 06:21 | NUR ---
NOTIFIED BY LAB, PATIENT'S BLOOD SUGAR 68. GAVE PATIENT ORANGE JUICE TO DRINK. PATIENT VERBALIZED UNDERSTANDING
[2018-06-12 07:35] VITALS: BP 93/53
--- NOTE | 2018-06-12 07:48 | NUR ---
PT AAOX4 RESP EVEN AND NONLABORED, NO SIGNS OF DISTRESS NOTED, NO NEEDS EXPRESSED AT THIS TIME, WILL CONTINUET TO MONITOR, CL IN REACH
[2018-06-12 11:21] VITALS: BP 92/53
--- NOTE | 2018-06-12 11:51 | NUR ---
CHART REVIEWED FOR SCD'S.
--- NOTE | 2018-06-12 12:42 | NUR ---
PATIENT REFUSED FLU VACCINE ON DISCHARGE.
--- NOTE | 2018-06-12 13:33 | NUR ---
PATIENT IS DISCHARGED TO HOME. HAPPY ABOUT GOING. DENIES NEEDS.
--- NOTE | 2018-06-12 13:50 | NUR ---
PT IV DC AT THIS TIME WITH CATH INTACT, DC INSTRUCTIONS GIVEN PT VERABLIZES UNDERSTANDING, PAPERWORK GIVEN TO PT LEAVING VIA WHEELCHAIR VIA HOSTPITAL STAFF, VIA FAMILY MEMBER VIA PRIVATE VECHILE IN STABLE CONDITION
--- NOTE | 2018-06-13 11:46 | EC ---
PATIENT:MIRZA TABARES DATE OF SERVICE: 06/10/18 SEX: F MEDICAL RECORD: [id number] DATE OF : 65 LOCATION:D.M3 D.120 AGE OF PATIENT: 52 ADMISSION DATE: 06/10/18 REFERRING PHYSICIAN: INTERPRETING PHYSICIAN: SWATI RASMUSSEN MD ECHOCARDIOGRAM REPORT ECHO CHARGES 4 ECHO COMPLETE Date: 06/10/18 CLINICAL DIAGNOSIS: CP ECHOCARDIOGRAPHIC MEASUREMENTS (adult normal given) AC root (d.<3.7cm) 3.3 cm LV Septum d (<1.2 cm> 0.9 cm Valve Excursion 1.7 cm LV Septum (systole) 1.5 cm Left Atria (s.<4.0cm> 2.4 cm LVPW d(<1.2cm) 1.1 cm RV (d.<2.3cm) 2.3 cm LVPW (sytole) 1.5 cm LV diastole(<5.6CM) 5.1 cm MV E-F(>70mm/sec) cm LV systole 3.0 cm LVOT Diameter 1.8 cm MV exc.(>10mm) cm Est.ejection fraction (50-75%) % DOPPLER: LVIT cm/sec A 60.0 cm/sec E 108 cm/sec LA cm/sec RVSP 34.0 mmHg LVOT 116 cm/sec AOP1/2T m/s Asc. Ao 144 cm/sec RVOT 65.0 cm/sec RA cm/sec PA 100 cm/sec AV Gradient Peak 8.3 mmHg AV Mean 3.4 mmHg AV Area 2.1 cm MV Gradient Peak 6.5 mmHg MV Mean 2.6 mmHg MV Area cm COMMENTS: Belt [employer] Shop Supervisor: 1 KESHIA CUNNINGHAM Whey Department Operator: 1 Dr. Rasmussen TAPE# PACS Pericardial Effusion N DATE OF SERVICE: Echocardiogram FINDINGS: 1. Left ventricular chamber size is within normal limits. Left ventricular systolic function is normal. Overall ejection fraction estimated at 60%. 2. Left atrium, right atrium, and right ventricle chamber sizes are within normal limits. 3. Valvular structures have normal structure and motion. ECHOCARDIOGRAM REPORT [id number] MIRZA TABARES 4. Doppler interrogation reveals [id number] mitral regurgitation, mild to moderate tricuspid regurgitation, no other valvular insufficiency or stenosis. Pulmonary systolic pressure is normal estimated at 34 mmHg. 5. No evidence of pericardial effusion or left ventricular thrombus. TRANSINT:[id number] Voice Confirmation ID: [id number] DOCUMENT ID: [id number] SWATI RASMUSSEN MD at 1146 CC: [id number] DICTATION DATE: 06/10/18 1251 GEAR GRINDING MACHINE OPERATOR: 06/10/186 DIS IN 06/12/[address] [facility] [address] [place] [id number]
== END 2018-06-12 13:57 | disposition home or self-care (01) ==
LOC: D.ER 03:42 → OBSVTIME 05:30 → D.EDHOLD 05:30 → D.M3 15:52
PROVIDERS: Family Medicine; ADMIT Internal Medicine Nephrology
DX: R07.89 Other chest pain (principal); R07.81 Pleurodynia; I95.9 Hypotension, unspecified; N17.9 Acute kidney failure, unspecified; E87.1 Hypo-osmolality and hyponatremia; F17.213 Nicotine dependence, cigarettes, with withdrawal; F41.9 Anxiety disorder, unspecified; N39.0 Urinary tract infection, site not specified

== ENCOUNTER 2018-07-09 12:34 | Inpatient (IN) | payer MEDICAID ==
[~2018-07-09] VITALS: Ht 170.2 cm; Wt 57.2 kg
[~2018-07-09 12:34] MED LIST changes: +HYDROCODON-ACE1 EA10; +OMEPRAZOLE20 M1; +ULTRAM50 MG
[2018-07-09 13:05] LABS: BASOPHILS 0.3 % (0-2); EOSINOPHILS 2.5 % (0-7); HEMATOCRIT 30.7 % (36.0-48.0); HEMOGLOBIN 10.8 g/dL (12-16); IMMATURE GRANULOCYTES 0.2 % (0-5); LYMPHOCYTES 31.5 % (15-50); MCHC 35.2 g/dL (31.0-37.0); MCV 85.3 fL (80.0-100.0); MEAN PLATELET VOLUME 9.1 fL (7.4-10.4); MONOCYTES 14.1 % (2-11); NEUTROPHILS 51.4 % (40-80); RDW 13.2 % (11.5-14.5); WBC 5.9 10x3/uL (4.8-10.8)
[2018-07-09 13:08] VITALS: BP 97/68
[2018-07-09 13:08] LABS: PLATELET COUNT 364 10x3/uL (130-400)
[2018-07-09 13:22] LABS: INR 1.12 (0.85-1.17); PROTIME 13.9 SECONDS (11.6-15.0)
[2018-07-09 13:23] LABS: APTT 52.9 SECONDS (22.8-39.4)
[2018-07-09 13:35] LABS: D-DIMER-QUANTITATIVE 13.16 ug/mLFEU (0.20-0.54)
[2018-07-09 13:38] LABS: ALBUMIN 2.9 g/dL (3.4-5.0); ALKALINE PHOSPHATASE 128 U/L (46-116); ALT (SGPT) 15 U/L (10-68); AMYLASE - SERUM 23 U/L (25-115); BILIRUBIN - TOTAL 0.68 mg/dL (0.2-1.3); CALCIUM 9.1 mg/dL (8.5-10.1); CARBON DIOXIDE 23.7 mmol/L (21.0-32.0); CKMB 0.1 U/L (0.0-3.6); GLUCOSE 94 mg/dL (74-106); LIPASE 120 U/L (73-393); MAGNESIUM - SERUM 1.5 mg/dL (1.8-2.4); POTASSIUM - SERUM 4.5 mmol/L (3.5-5.1); PROTEIN - SERUM 7.8 g/dL (6.4-8.2); UREA NITROGEN 23 mg/dL (7-18); eGFR NON AFRICAN AMERICAN 62 mL/min (90-120)
--- NOTE | 2018-07-09 13:38 | NUR ---
ELEVATED D DIMER OF 13.16 CALLED BY Merkle TECH AT THIS TIME. NOTIFIED DR. QUILES OF CRITICAL LAB RESULT.
[2018-07-09 13:39] LABS: CALC OSMOLALITY 234 mosm/kg (275-300); CHLORIDE - SERUM 80 mmol/L (98-107); SODIUM 114 mmol/L (136-145); TROPONIN-I < 0.017 ng/mL (0.000-0.060)
--- NOTE | 2018-07-09 13:40 | NUR ---
CALL FROM LAB FOR NA OF 114 AND CL OF 80. ERP INFORMED.
[2018-07-09 13:45] VITALS: BP 99/62
--- NOTE | 2018-07-09 13:51 | NUR ---
ACTUAL WEIGHT 126 LBS.
[2018-07-09 15:03] LABS: APPEARANCE CLEAR (CLEAR); BILIRUBIN NEGATIVE (NEGATIVE); COLOR YELLOW (YELLOW); GLUCOSE NEGATIVE (NEGATIVE); KETONE NEGATIVE (NEGATIVE); NITRITE NEGATIVE (NEGATIVE); PROTEIN TRACE mg/dL (NEGATIVE); UROBILINOGEN NORMAL (NORMAL)
--- NOTE | 2018-07-09 15:03 | MORECARE ---
CASE MANAGEMENT DISCHARGE SUMMARY PATIENT: MIRZA TABARES UNIT: [id number] ADM DATE: 07/09/18 AGE: 52 : [birth year] SEX: F ROOM/BED: D.[facility] AUTHOR: ZACHARY ENGLISH PHYSICIAN: REFERRING PHYSICIAN: DOTTIE WEIR MD DATE OF SERVICE: 07/09/18 Discharge Plan Patient Name: [facility]ZA [facility]AR[facility] [facility] 1965 Planned Disposition: Home Anticipated Discharge Date: 07/11/18 Discharge Date: Expected LOS: 2 Initial Reviewer: [email or web address] Initial Review Date: 07/09/2018 Generated: 07/09/18 4:03 pm Patient Name: MIRZA TABARES Page [id number] at 1503 All edits/amendments must be made on the electronic document DICTATION DATE: 07/09/18 1503 BAG MACHINE SET UP OPERATOR: LOI 07/09/18 1503 RPT#: [id number] DC DATE: STATUS: ADM IN [facility] [address] [place] [address] END OF REPORT
--- NOTE | 2018-07-09 15:05 | NUR ---
1450-FAMILY IS IN ROOM AT THIS TIME BEFORE REPORT IS CALLED TO ME. 1455-RECEIVED REPORT FROM THE ED. MAG SULFATE AND IV FLUIDS ARE INFUSING TO RIGHT AC PER ER NURSE. PATIENT HAS ALREADY HAD A CTA DONE. AWAITING PATIENT.
--- NOTE | 2018-07-09 15:11 | MORECARE ---
CASE MANAGEMENT DISCHARGE SUMMARY PATIENT: MIRZA TABARES UNIT: [id number] ADM DATE: 07/09/18 AGE: 52 : [birth year] SEX: F ROOM/BED: D.9801 AUTHOR: TAMEKA,DOC PHYSICIAN: REFERRING PHYSICIAN: DOTTIE WEIR MD DATE OF SERVICE: 07/09/18 Discharge Plan Patient Name: MIRZA TABARES Facility: [facility]:[place] : 1965 Planned Disposition: Home Anticipated Discharge Date: 07/11/18 Discharge Date: Expected LOS: 2 Initial Reviewer: [email or web address] Initial Review Date: 07/09/2018 Generated: 07/09/18 4:11 pm DCP- Discharge Planning Updated by [email or web address]: Sherrie Phelps on 07/09/18 2:[address] Patient Name: MIRZA TABARES Admission Status: ER Accout number: [id number] Admission Date: 07-09-2018 : 1965 Admission Diagnosis: Attending: DOTTIE WEIR Current LOS: 1 Anticipated DC Date: 07-11-2018 Planned Disposition: Home Primary Insurance: [email or web address] [facility] [place] Discharge Planning Comments: CM met with patient and her nephew, Marshall to complete initial dc planning assessment. CM educated them on the CM role and verbal consent given by patient to complete assessment. Patient lives at home with her sister and is normally independent in her care at home. Over the past week patient has required assistance with Adl's and Iadl's. At discharge patient plans to return to her sister's house and feels this is a safe discharge. CM discussed availability of home health, rehab services, and medical equipment. Patient denied known discharge needs at this time. CM will continue to follow and will assist as needed with dc plans/needs. Line Patrolman: Sherrie Phelps RN, [facility] DCPIA - Discharge Planning Initial Assessment Updated by [email or web address]: Sherrie Phelps on 07/09/18 3:04 pm * Is the patient Alert and Oriented? Yes * How many steps to enter\exit or inside your home? None * PCP Dr. Mayo * Pharmacy [facility] * Preadmission Environment Home with Family * ADLs Independent * Equipment Glucometer * List name and contact numbers for known caregivers / representatives who currently or will assist patient after discharge: Claritza Lin - nephew girlfriend- [phone] Lin Fofana - [phone] Marshall Franz - nephew - [phone] * Verbal permission to speak to the caregivers and representatives has been obtained from the patient. Yes * Community resources currently utilized None * Additional services required to return to the preadmission environment? No * Can the patient safely return to the preadmission environment? Yes * Has this patient been hospitalized within the prior 30 days at any hospital? Yes Last DP export: 07/09/18 2:03 p Patient Name: MIRZA TABARES Page [id number] at 1511 All edits/amendments must be made on the electronic document DICTATION DATE: 07/09/181510 GENERATOR ASSEMBLER: LOI 07/09/181510 RPT#: [id number] DC DATE: STATUS: ADM IN [facility] [address] [place] [address] END OF REPORT
--- NOTE | 2018-07-09 15:19 | NUR ---
RECEIVED TO ROOM WITH IV FLUIDS AND MAG INFUSING.
[2018-07-09 15:22] VITALS: BP 87/49; BMI 19.7
--- NOTE | 2018-07-09 15:52 | NUR ---
FAMILY MEMBER TO TAKE PATIENT TO RESTROOM TO VOID.
--- NOTE | 2018-07-09 16:28 | NUR ---
LAYING ON RIGHT SIDE CURLED INTO POSITION. DENEIS NEEDS AT THIS TIME. FAMILY IS AT BEDSIDE.
--- NOTE | 2018-07-09 19:32 | NUR ---
ALERT/AWAKE DENIES PAIN OR ANY NEEDS. IV IN RT AC WITH NS INFUSING AT 125ML/HR. RR 18 EVEN U/L ON ROOM AIR. BED IS LOW WITH BEDSIDE TABLE AND CALL LIGHT IN REACH.
[2018-07-09 20:00] VITALS: BP 111/59
--- NOTE | 2018-07-09 20:30 | NUR ---
CONSERVATION OF RESOURCES COMMISSIONER REPORTED TEMP OF 101.0 F AND C/O N/V. RECEIVED ORDER FROM DR WEIR TO GIVE TYLENOL 650 MG PO AND ZOFRAN 4MG IV. ORDERED KUB AND BLOOD CULTURES.
[2018-07-09 23:30] VITALS: BP 89/54
--- NOTE | 2018-07-10 03:20 | NUR ---
ADMIN TYLENOL 650MG PO FOR TEMP 101.5 F DEGREES. ASYMPTOMATIC, DENIES FEELING HOT, COLD OR DIAPHORETIC.
[2018-07-10 04:30] VITALS: BP 100/56
--- NOTE | 2018-07-10 05:00 | NUR ---
RECHECKED TEMP AT 99.2 F DEGREES.
--- NOTE | 2018-07-10 07:22 | NUR ---
ROUNDING DONE WITH PATIENT LAYING ON RIGHT SIDE, RESTING AT PRESENT TIME, EYES CLOSED, RESP ARE EVEN. RIGHT AC PIV SEEN WITH NS INFUSING AT 125 CC/HR. APPEARS NAUSEA FREE AT THIS TIME.
[2018-07-10 09:22] VITALS: BP 90/57
--- NOTE | 2018-07-10 11:30 | NUR ---
FLU SWAB A/B SENT TO LAB.
--- NOTE | 2018-07-10 11:38 | NUR ---
URINE SENT FOR UDS ORDERED.
--- NOTE | 2018-07-10 12:09 | NUR ---
COMPLAINTS OF NAUSEA, NO EMESIS SEEN. DRY HEAVING WITH HICCUPS. ZOFRAN GIVEN.
[2018-07-10 12:16] LABS: BASOPHILS 0.3 % (0-2); EOSINOPHILS 7.3 % (0-7); HEMATOCRIT 29.1 % (36.0-48.0); HEMOGLOBIN 10.1 g/dL (12-16); MCH 29.9 pg (26.0-34.0); MCHC 34.7 g/dL (31.0-37.0); MCV 86.1 fL (80.0-100.0); MEAN PLATELET VOLUME 9.4 fL (7.4-10.4); MONOCYTES 6.4 % (2-11); PLATELET COUNT 324 10x3/uL (130-400); RBC 3.38 10x6/uL (4.00-5.40); RDW 13.3 % (11.5-14.5)
[2018-07-10 12:19] LABS: WBC 3.4 10x3/uL (4.8-10.8)
[2018-07-10 12:55] LABS: ALBUMIN 2.6 g/dL (3.4-5.0); BILIRUBIN - TOTAL 0.61 mg/dL (0.2-1.3); CALCIUM 7.6 mg/dL (8.5-10.1); CARBON DIOXIDE 21.6 mmol/L (21.0-32.0); CREATININE - SERUM 0.9 mg/dL (0.6-1.3); MAGNESIUM - SERUM 1.5 mg/dL (1.8-2.4); POTASSIUM - SERUM 4.5 mmol/L (3.5-5.1)
[2018-07-10 12:57] LABS: ANION GAP 15.9 mmol/L (8-16)
--- NOTE | 2018-07-10 12:58 | NUR ---
STOOL SENT TO LAB ORDERED. LAB TO CALL AND TELL ME HER NA IS 120, THIS IS BETTER THAN UPON ADMIT. K+ 4.5, MAG IS 1.5. WILL COVER WITH ORAL SUPPLEMENTS FOR MAG LEVEL.
[2018-07-10 13:18] LABS: UDS - AMPHET NEGATIVE QUAL (NEGATIVE); UDS - BARB NEGATIVE QUAL (NEGATIVE); UDS - BENZO NEGATIVE QUAL (NEGATIVE); UDS - COCAINE NEGATIVE QUAL (NEGATIVE); UDS - OPIATE NEGATIVE QUAL (NEGATIVE); UDS - PCP NEGATIVE QUAL (NEGATIVE); UDS - THC NEGATIVE QUAL (NEGATIVE)
[2018-07-10 13:41] VITALS: BP 98/56
--- NOTE | 2018-07-10 13:49 | NUR ---
FLU SWAB A/B IS NEGATIVE. PATIENT IS STILL HAVING SOME LIQUID EMESIS OF APPROX. 50 CC. REQUEST COKE AND WATER. I TALKED TO HER ABOUT HAVING SOME "GUT REST" UNTIL THE NAUSEA AND VOMITING PASS. I ALSO INSTRUCTED HER IN JUICE WATER WILL DECREASE THE SODIUM.
--- NOTE | 2018-07-10 15:40 | NUR ---
RESTING AT PRESENT TIME, NO NAUSEA AT THIS TIME OR RETCHING.
--- NOTE | 2018-07-10 15:48 | NUR ---
PATIENT TO REFUSE SCD'S SHE IS UP AND DOWN TO THE RESTROOM.
[2018-07-10 17:32] VITALS: BP 92/60
--- NOTE | 2018-07-10 17:44 | NUR ---
ANOTHER 400 MG MAG OX GIVEN PER EP PROTOCOL.
--- NOTE | 2018-07-10 19:58 | NUR ---
ALERT/AWAKE TALKING ON PHONE. DENIES PAIN OR ANY NEEDS. RR 20 EVEN U/L. IV IN R AC INTACT WITH NS INFUSING AT 125ML/HR. BED IS LOW WITH CALL LIGHT IN REACH.
[2018-07-10 20:00] VITALS: BP 100/48
[2018-07-11] VITALS: BP 160/117
--- NOTE | 2018-07-11 | NUR ---
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
[2018-07-11 05:00] VITALS: BP 103/56
[2018-07-11 05:32] LABS: CALCIUM 7.8 mg/dL (8.5-10.1); CARBON DIOXIDE 23.1 mmol/L (21.0-32.0); CHLORIDE - SERUM 97 mmol/L (98-107); GLUCOSE 85 mg/dL (74-106); POTASSIUM - SERUM 4.5 mmol/L (3.5-5.1); SODIUM 127 mmol/L (136-145)
[2018-07-11 05:33] LABS: BASOPHILS 0.8 % (0-2); EOSINOPHILS 22.9 % (0-7); HEMATOCRIT 27.9 % (36.0-48.0); HEMOGLOBIN 9.5 g/dL (12-16); IMMATURE GRANULOCYTES 0.4 % (0-5); LYMPHOCYTES 26.7 % (15-50); MCH 29.5 pg (26.0-34.0); MCHC 34.1 g/dL (31.0-37.0); MCV 86.6 fL (80.0-100.0); MEAN PLATELET VOLUME 9.6 fL (7.4-10.4); MONOCYTES 11.7 % (2-11); NEUTROPHILS 37.5 % (40-80); PLATELET COUNT 326 10x3/uL (130-400); RBC 3.22 10x6/uL (4.00-5.40); RDW 13.4 % (11.5-14.5)
--- NOTE | 2018-07-11 05:36 | NUR ---
AWAKE. DENIES ANY NEEDS OR DISCOMFORTS.
[2018-07-11 05:37] LABS: WBC 2.4 10x3/uL (4.8-10.8)
[2018-07-11 05:40] LABS: CALC OSMOLALITY 251 mosm/kg (275-300); CREATININE - SERUM 0.6 mg/dL (0.6-1.3); UREA NITROGEN 6 mg/dL (7-18); eGFR NON AFRICAN AMERICAN > 90 mL/min (90-120)
--- NOTE | 2018-07-11 06:09 | NUR ---
ADMIN SCHED PO MED WITH SIPS OF WATER. DENIES ANY OTHER NEEDS OR DISCOMFORTS.
--- NOTE | 2018-07-11 07:37 | NUR ---
REPORT RECEIVED. WILL CONTINUE WITH POC. PT CURRENTLY LYING SUPINE. CALL LIGHT W/I REACH. PT IS RESTING AT THE MOMENT. RR EVEN AND UNLABORED ON RA. NS INFUSING @125ML/HR VIA R.AC PIV. PT DENIES ANY NEEDS AT THIS TIME. WILL CTM.
[2018-07-11 08:46] VITALS: BP 92/51
[2018-07-11 10:53] VITALS: Ht 170.2 cm; Wt 57.2 kg
[2018-07-11 12:00] VITALS: BP 91/52
[2018-07-11 16:11] VITALS: BP 90/50
--- NOTE | 2018-07-11 19:34 | NUR ---
ALERT/AWAKE ORIENTED X4. RR 18 EVEN U/L ON ROOM AIR. DENIES PAIN OR ANY NEEDS, BUT STATES "I STILL DO NOT FEEL RIGHT". COULD NOT SPECIFY ON WHERE?. IV IN R AC INTACT WITH NS INFUSING AT 125ML/HR. REQUESTED MORE ICE WATER. DID NOT WANT THE SCD'S ON.
[2018-07-11 20:00] VITALS: BP 100/45
--- NOTE | 2018-07-11 23:09 | NUR ---
AWAKE. REQUESTED JELLO AND MORE ICE WATER. DENIES PAIN OR ANY DISCOMFORTS.
[2018-07-12] VITALS: BP 100/53
[2018-07-12 04:30] VITALS: BP 122/66
--- NOTE | 2018-07-12 05:40 | NUR ---
ADMIN SCHED PO MED WITH SIPS OF WATER. DENIES ANY OTHER NEEDS OR DISCOMFORTS.
[2018-07-12 05:41] LABS: CALC OSMOLALITY 265 mosm/kg (275-300); CALCIUM 8.2 mg/dL (8.5-10.1); CARBON DIOXIDE 24.1 mmol/L (21.0-32.0); CHLORIDE - SERUM 100 mmol/L (98-107); CREATININE - SERUM 0.6 mg/dL (0.6-1.3); GLUCOSE 106 mg/dL (74-106); SODIUM 134 mmol/L (136-145); UREA NITROGEN 6 mg/dL (7-18); eGFR NON AFRICAN AMERICAN > 90 mL/min (90-120)
[2018-07-12 05:44] LABS: BASOPHILS 0.3 % (0-2); EOSINOPHILS 22.6 % (0-7); HEMOGLOBIN 9.3 g/dL (12-16); IMMATURE GRANULOCYTES 0.3 % (0-5); LYMPHOCYTES 28.6 % (15-50); MCH 29.1 pg (26.0-34.0); MCHC 33.2 g/dL (31.0-37.0); MCV 87.5 fL (80.0-100.0); MEAN PLATELET VOLUME 9.5 fL (7.4-10.4); MONOCYTES 8.5 % (2-11); NEUTROPHILS 39.7 % (40-80); PLATELET COUNT 349 10x3/uL (130-400); RDW 13.7 % (11.5-14.5)
--- NOTE | 2018-07-12 07:30 | NUR ---
RECEIVED PT IN BED EYES CLOSED RESP UNLABORED NAD NOTED
[2018-07-12 08:00] VITALS: BP 98/48
[2018-07-12 12:00] VITALS: BP 98/72
[2018-07-12 16:00] VITALS: BP 96/53
--- NOTE | 2018-07-12 19:21 | NUR ---
INTRODUCED SELF TO PATIENT, PATIENT SHOWED ME HER RIGHT ARM WHERE THE IV HAD INFILTRATED. PATIENT STATED SHE FELT WARM, SKIN WAS FLUSHED. TEMP 100.6 GAVE TYLENOL, WILL CONTINUE TO MONITOR. BED IN LOWEST POSITION, CALL LIGHT IN REACH. NO NEEDS AT THIS TIME.
[2018-07-12 20:00] VITALS: BP 102/52
[2018-07-13] VITALS: BP 101/54
[2018-07-13 04:00] VITALS: BP 103/63
[2018-07-13 05:56] LABS: BASOPHILS 0.5 % (0-2); EOSINOPHILS 24.7 % (0-7); HEMATOCRIT 29.7 % (36.0-48.0); HEMOGLOBIN 9.7 g/dL (12-16); IMMATURE GRANULOCYTES 0.3 % (0-5); LYMPHOCYTES 37.9 % (15-50); MCH 28.7 pg (26.0-34.0); MCHC 32.7 g/dL (31.0-37.0); MCV 87.9 fL (80.0-100.0); MEAN PLATELET VOLUME 9.3 fL (7.4-10.4); MONOCYTES 6.2 % (2-11); NEUTROPHILS 30.4 % (40-80); PLATELET COUNT 382 10x3/uL (130-400); RBC 3.38 10x6/uL (4.00-5.40); RDW 13.8 % (11.5-14.5); WBC 3.9 10x3/uL (4.8-10.8)
[2018-07-13 06:23] LABS: CALC OSMOLALITY 264 mosm/kg (275-300); CALCIUM 8.5 mg/dL (8.5-10.1); CARBON DIOXIDE 25.2 mmol/L (21.0-32.0); CHLORIDE - SERUM 99 mmol/L (98-107); CREATININE - SERUM 0.6 mg/dL (0.6-1.3); GLUCOSE 93 mg/dL (74-106); POTASSIUM - SERUM 3.9 mmol/L (3.5-5.1); SODIUM 134 mmol/L (136-145); eGFR NON AFRICAN AMERICAN > 90 mL/min (90-120)
[2018-07-13 06:32] LABS: UREA NITROGEN 4 mg/dL (7-18)
--- NOTE | 2018-07-13 07:45 | NUR ---
A/A/OX4. DENIES ANY PAIN OR DISCOMFORT AND NO REQUESTS VOICED. ASSESSMENT COMPLETED. BED IN LOWEST POSITION AND LOCKED, SIDERAILS UP X 2 AND CALL LIGHT IN REACH. WILL CONTINUE POC.
[2018-07-13 09:54] VITALS: BP 94/50
[2018-07-13 14:10] VITALS: BP 96/64
--- NOTE | 2018-07-13 15:08 | NUR ---
I have reviewed this patient and I concur with the Shift Assessment completed by the Licensed Practical Nurse today this shift.
[2018-07-13] MEDS ORDERED: ZITHROMAX500 MG PO (15:34)
--- NOTE | 2018-07-13 20:43 | NUR ---
DISCHARGED PATIENT AT [facility] HOME VIA FAMILY.
--- NOTE | 2018-07-14 08:05 | MORECARE ---
CASE MANAGEMENT DISCHARGE SUMMARY PATIENT: MIRZA TABARES UNIT: [id number] ADM DATE: 07/09/18 AGE: 52 : 65 SEX: F ROOM/BED: D.8773 AUTHOR: TAMEKA,DOC PHYSICIAN: REFERRING PHYSICIAN: DOTTIE WEIR MD DATE OF SERVICE: 07/14/18 Discharge Plan Patient Name: MIRZA TABARES Facility: [facility]:[place] : 1965 Planned Disposition: Home Anticipated Discharge Date: 07/13/18 Discharge Date: 07/13/2018 Expected LOS: 4 Initial Reviewer: [email or web address] Initial Review Date: 07/09/2018 Generated: 07/14/18 9:05 am DCP- Discharge Planning Updated by [email or web address]: Sherrie Phelps on 07/09/18 2:[address] Patient Name: MIRZA TABARES Admission Status: ER Accout number: [id number] Admission Date: 07-09-2018 : 1965 Admission Diagnosis: Attending: DOTTIE WEIR Current LOS: 1 Anticipated DC Date: 07-11-2018 Planned Disposition: Home [facility] [employer] [facility] [place] Discharge Planning Comments: CM met with patient and her nephew, Marshall to complete initial dc planning assessment. CM educated them on the CM role and verbal consent given by patient to complete assessment. Patient lives at home with her sister and is normally independent in her care at home. Over the past week patient has required assistance with Adl's and Iadl's. At discharge patient plans to return to her sister's house and feels this is a safe discharge. CM discussed availability of home health, rehab services, and medical equipment. Patient denied known discharge needs at this time. CM will continue to follow and will assist as needed with dc plans/needs. Printing Sign Machine Operator: Sherrie Phelps RN, [facility] DCPIA - Discharge Planning Initial Assessment Updated by [email or web address]: Sherrie Phelps on 07/09/18 3:04 pm * Is the patient Alert and Oriented? Yes * How many steps to enter\exit or inside your home? None * PCP Dr. Mayo * Pharmacy [facility] * Preadmission Environment Home with Family * ADLs Independent * Equipment Glucometer * List name and contact numbers for known caregivers / representatives who currently or will assist patient after discharge: Claritza Lin - nephew girlfriend- [phone] Lin Fofana - [phone] Marshall Franz - nephew - [phone] * Verbal permission to speak to the caregivers and representatives has been obtained from the patient. Yes * Community resources currently utilized None * Additional services required to return to the preadmission environment? No * Can the patient safely return to the preadmission environment? Yes * Has this patient been hospitalized within the prior 30 days at any hospital? Yes Last DP export: 07/09/18 2:11 p Patient Name: MIRZA TABARES Page [id number] at [id number] All edits/amendments must be made on the electronic document DICTATION DATE: 07/14/18 08 WEB UI SOFTWARE ENGINEER: LOI 07/14/18 08 RPT#: [id number] DC DATE:07/13/18 STATUS: DIS IN [facility] [address] [place] [address] END OF REPORT
== END 2018-07-13 20:00 | disposition home or self-care (01) | DRG 202 ==
LOC: D.ER 12:34 → D.M2 13:54 → D.EDHOLD 13:54 → D.M2 14:43
PROVIDERS: Emergency Medicine; ADMIT Internal Medicine Nephrology; ATTEND Internal Medicine Nephrology
DX: J20.9 Acute bronchitis, unspecified (principal); E87.1 Hypo-osmolality and hyponatremia; N17.9 Acute kidney failure, unspecified; F17.213 Nicotine dependence, cigarettes, with withdrawal; E83.42 Hypomagnesemia; D64.9 Anemia, unspecified

== ENCOUNTER → 2018-09-26 10:00 | Outpatient (CLI) | payer MEDICAID ==
[2018-07-11 10:53] VITALS: BMI 19.7
[~2018-09-26 10:00] MED LIST changes: +ZITHROMAX500 MG PO
== END | disposition home or self-care (01) ==
LOC: D.MAMMO 10:00
PROVIDERS: ATTEND Family Medicine
DX: Z12.31 Encounter for screening mammogram for malignant neoplasm of breast (principal)

== ENCOUNTER → 2018-11-10 08:00 | Outpatient (CLI) | payer MEDICAID ==
[2018-07-11 10:53] VITALS: BMI 19.7
== END | disposition home or self-care (01) ==
LOC: D.MAMMO 08:00
PROVIDERS: ATTEND Family Medicine
DX: R92.8 Other abnormal and inconclusive findings on diagnostic imaging of breast (principal)

== ENCOUNTER → 2018-12-28 10:32 | Outpatient (CLI) | payer MEDICAID ==
[2018-07-11 10:53] VITALS: BMI 19.7
== END | disposition home or self-care (01) ==
LOC: D.US 10:32
PROVIDERS: ATTEND Surgery
DX: N63.11 Unspecified lump in the right breast, upper outer quadrant (principal)